=== PATIENT | male | born 1960 | race Caucasian/White ===

== ENCOUNTER 2020-01-11 09:15 | Outpatient (RCR) | payer OTHER, SELFPAY | END 2020-02-26 23:59 | disposition home or self-care (01) | LOC: ANHDMC 09:15 | PROVIDERS: PCP Family Medicine; Visit Provider Family Medicine | DX: E11.65 Type 2 diabetes mellitus with hyperglycemia (principal); Z71.89 Other specified counseling | CPT/HCPCS: G0108 ==

== ENCOUNTER 2020-09-23 12:20 | Outpatient (NON) | payer OTHER, SELFPAY ==
[2020-09-23 23:01] LABS: SARS-CoV-2 RNA PCR Positive
== END 2020-09-23 12:21 ==
LOC: ANHCOVIDDT 12:21
PROVIDERS: PCP Family Medicine; Visit Provider Physician Assistant
DX: U07.1 COVID-19 (principal)
CPT/HCPCS: 87635; C9803; U0003

== ENCOUNTER → 2021-01-24 01:47 | Outpatient (CLI) | payer OTHER, SELFPAY ==
[2021-01-24 19:39] LABS: SARS-CoV-2 RNA PCR Negative
== END ==
PROVIDERS: PCP Physician Assistant; Visit Provider Internal Medicine Critical Care Medicine
DX: R68.89 Other general symptoms and signs (principal); Z20.822 Contact with and (suspected) exposure to COVID-19
CPT/HCPCS: C9803; U0003; U0005

== ENCOUNTER 2021-01-27 09:00 | Outpatient (CLI) | payer OTHER, SELFPAY ==
--- NOTE | 2021-02-12 09:45 | WPDSLEEPSTUD ---
Sleep Study Date of Study: 01/27/21 Ordering Provider: Bhanu Luna PA-C Interpreting Physician: Ginette Saucedo MD Sleep Study Type: CPAP Titration Height: 1.91 m Weight: 127.006 kg Body Mass Index: 34.9 Neck Circumference (inches): 19 Stanton: 8 Reason for Sleep Study History of sleep apnea controlled with CPAP for 20 years, has not had an evaluation in many years, presents for CPAP re-titration. 12/23/2012 CPAP re-titration; optimal pressure 11 cm; BMI 37.5 Sleep History Rom Ackerman is a 60-year-old man who was diagnosed with obstructive sleep apnea 20 years ago and was treated with CPAP. He constantly snores at night and is loud enough that others complain about it. He constantly has trouble sleeping with a cold. He does not awaken at night with heartburn, belching or coughing. He does not awaken from sleep feeling short of breath. He does not gasp for breath at night. He constantly has breathing problems at night observed by others when he is not using CPAP. He occasionally sweats excessively at night. He does not notice his heart pounding or beating irregularly at night. He occasionally falls asleep during the day, never involuntarily or while driving. He does not have loss of muscle tone was strong emotion. He does not have daytime difficulties due to excessive sleepiness. He does not feel paralyzed on waking or falling asleep. He occasionally has vivid dreamlike scenes upon awakening or falling asleep. He is not afraid to go to sleep. He does not have nightmares. He occasionally remembers his dreams. He does not have racing thoughts. He denies feelings of sadness depression or anxiety. He does not have muscular tension. He does not notice parts of his body jerking and he does not kick at night. He does not have crawling or aching feelings in his legs. He does not have any kind of leg pain at night. He does not have morning jaw pain. He does not grind his teeth during sleep. He is not bothered by pain during the day and is not awakened by pain at night. He occasionally wakes up feeling stiff in the morning. He does not wake up with sore achy muscles. He occasionally wakes up with pain in the neck and spine. He has fatigue. Normal bedtime is 11:00 p.m. falling asleep within 30 minutes. He does not awaken during the night. If he wakes up it is only for a minute or 2 in the middle of the night. He will roll over and return to sleep. His wake up time is 6:30 a.m.. On the weekends he goes to bed at 11:00 p.m. and wakes at 7:30 a.m.. He does not take naps. A short nap is not refreshing. Most of the time he feels good in the morning. He feels better in the morning compared other times a day. Habits: No tobacco, caffeine, alcohol, or recreational drugs. [facility] Past Medical History Medical History Hyperlipidemia Hypertension Skin cancer Type 2 diabetes mellitus Surgical History Surgical History H/O shoulder surgery To repair fractured clavicle History of hernia repair Previous back surgery Family History Family History Other Family history of primary malignant neoplasm of liver Malignant neoplasm of prostate Social History Social History Smoking status: Former smoker Second hand tobacco smoke exposure: No Alcohol intake: current Drinks per week: 1 Substance use: never Substance use type: does not use Gender identity (if verbalized by the patient): Male Spiritual care concerns: Yes Agree to blood products: Yes Medications Home Medications Medication Instructions Recorded Confirmed Type metformin 500 mg tablet,extended 2,000 mg PO QPM #360 tablet 02/05/20 01/09/21 Rx release 24 hr lancets 33 gauge #100 each 10/02/20 01/09/21 Rx lisinopril 10
[2021-02-12 10:12] VITALS: BMI 34.9
== END 2021-01-27 09:01 | disposition home or self-care (01) ==
LOC: ANHCSM 09:00
PROVIDERS: PCP Physician Assistant; Visit Provider Physician Assistant
DX: G47.33 Obstructive sleep apnea (adult) (pediatric) (principal); Z99.89 Dependence on other enabling machines and devices
CPT/HCPCS: 95811

== ENCOUNTER → 2022-03-02 09:46 | Outpatient (CLI) | payer OTHER, SELFPAY ==
--- NOTE | ~2022-03-02 | MR_ITS ---
EXAMINATION: MR brain IAC wo/w con DATE: 03/02/2022 10:46 INDICATION: Other specified hearing loss, unspecified ear. TECHNIQUE: Magnetic resonance imaging (MRI) of the brain, brainstem, and internal auditory canals was performed without and with 20 mL MultiHance intravenous contrast. COMPARISON: Sinuses CT 03/16/2019 FINDINGS: There are scattered areas of nonspecific increased T2-weighted signal intensity in the cere bral white matter. There is no intracranial hemorrhage, acute infarction, or abnormal intracranial ma ss lesion. The ventricles are normal in size. There is mild mucosal thickening in the paranasal sinus es. The orbits are normal. The internal artery canals and inner and middle ears are normal. The masto id air cells are normal. IMPRESSION: 1. Mild nonspecific cerebral white matter disease, which likely represents chronic small vessel ische kyree disease. Reviewed, dictated and finalized at location A. IMPRESSION: 1. 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
[2022-03-02 10:13] LABS: Estimated Glomerular Filt Rate > 60
== END ==
PROVIDERS: PCP Family Medicine; Visit Provider Otolaryngology
DX: H91.8X9 Other specified hearing loss, unspecified ear (principal); R93.0 Abnormal findings on diagnostic imaging of skull and head, not elsewhere classified
CPT/HCPCS: 70553; A9577

== ENCOUNTER 2022-12-04 02:38 | Day surgery (SDC) | payer OTHER, SELFPAY ==
[2022-11-19 14:45] VITALS: BMI 34.9
[2022-12-04 06:40] VITALS: BP 142/78; PULSE 73; RESP 18; TEMP 36.1; O2SAT 99
[2022-12-04] MEDS: LACTATED RINGERS 1,000 ML 150 ML IV CONT (06:51)
[2022-12-04 06:56] LABS: Glucose Point of Care 151 mg/dl (65-105)
--- NOTE | 2022-12-04 07:49 | WPDANESEPPF ---
Anes - Initial Pre Proc Eval Procedure: Operation Date: 12/04/22 08:00 Proposed Procedures p Screening Colonoscopy - Anderson Kovacs MD Date/Time: 12/04/22 07:49 Surgeon: Anderson Kovacs MD Pre Op Diagnosis: neoplasm screening Patient Data Age: 62 Gender: M Height: 1.91 m Weight: 127 kg Last Vital Signs Temp 96.9 F L 12/04/22 06:40 Pulse 73 12/04/22 06:40 Resp 18 12/04/22 06:40 BP 142/78 H 12/04/22 06:40 Pulse Ox 99 12/04/22 06:40 O2 Del Method Room Air 12/04/22 06:40 Allergies Allergy/AdvReac Type Severity Reaction Status Date / Time No Known Allergies Allergy Verified 12/04/22 06:38 Home Medications Medication Instructions Recorded Confirmed Type fluticasone propionate 50 1 spray intranasal DAILY 01/09/21 11/19/22 History mcg/actuation nasal spray,suspension (Flonase Allergy Relief) simvastatin 20 mg tablet 20 mg PO DAILY #90 tabs 12/26/21 11/19/22 Rx glucosamine 750 gw-ktthjjsruhe-cbx 1 tablet PO DAILY 04/20/22 11/19/22 History no1 644 mg-C 30 mg-christine 1 mg tablet (Osteo Bi-Flex Triple Strength) omega 9-sry-zzj-fish oil 1,200 mg 1 cap PO DAILY 04/20/22 11/19/22 History (144 mg-216 mg) capsule (Fish Oil) pen needle, diabetic 31 gauge x #100 ea 07/14/22 10/22/22 Rx 1/4 (1st Tier Unifine Pentips Plus) dapagliflozin 10 mg tablet See Rx Instructions .Route 08/23/22 11/19/22 Rx (Farxiga) .COMPLEX #90 tabs lancets 33 gauge (OneTouch Delica #100 ea 09/23/22 10/22/22 Rx Lancets) cholecalciferol (vitamin D3) 125 125 mcg PO DAILY 10/22/22 11/19/22 History mcg (5,000 unit) capsule lisinopril 10 mg tablet See Rx Instructions .Route 10/22/22 11/19/22 Rx .COMPLEX #90 tabs magnesium oxide 500 mg tablet 500 mg PO DAILY 10/22/22 11/19/22 History mecobalamin (vitamin B12) 1,000 1,000 mcg PO DAILY 10/22/22 11/19/22 History mcg chewable tablet potassium gluconate 595 mg (99 mg) 595 mg PO DAILY 10/22/22 11/19/22 History tablet sildenafil 100 mg tablet (Viagra) 100 mg PO DAILY PRN sexual 10/22/22 11/19/22 Rx activity #9 tabs metformin 500 mg tablet,extended 2,000 mg PO QPM #360 tabs 11/03/22 11/19/22 Rx release 24 hr blood sugar diagnostic (OneTouch #300 ea 11/17/22 Rx Verio test strips) insulin glargine-yfgn 100 unit/mL 80 unit subcut DAILY 12/04/22 12/04/22 History (3 mL) subcutaneous pen (Semglee (insulin glargine-yfgn) Pen) Laboratory Tests 12/04/22 06:45 POC Capillary Glucose 151 mg/dl H mg/dl (65-105) Patient hx anesthesia problems: none Family hx anesthesia problems: none Results Review: All pre-operative results and documents have been reviewed as part of the pre-operative evaluation. [facility] Past Medical History Medical History Dupuytren's contracture of left hand Hyperlipidemia Hypertension Skin cancer Type 2 diabetes mellitus Wears hearing aid in both ears Surgical History Surgical History H/O shoulder surgery To repair fractured clavicle History of hernia repair Previous back surgery Family History Family History Other Family history of primary malignant neoplasm of liver Malignant neoplasm of prostate Social History Social History (Updated 10/22/22 @ 08:19 by Melissa Vasquez CMA) Smoking status: Former smoker Second hand tobacco smoke exposure: No Alcohol intake: current Drinks per week: 1 Alcohol use details: Occasional Substance use: never Substance use type: does not use Lack of Transportation: No Lack of Food: Never True Current Housing: I Have Housing Concerned About Future Housing: No Difficulty Paying Gas/Electric Bills: No Difficulty Paying for Meds: No Currently Unemployed: No Education: Bachelor's Degree Difficulty w/ Childcare or
--- NOTE | 2022-12-04 07:51 | PM.HPGS ---
History of Present Illness History of Present Illness Consent: Risks, benefits, and alternatives have been discussed and questions answered. Patient agrees to proceed with procedure. Chief complaint: neoplasm screening Narrative: Rom Ackerman is a 62 year old male with history of polyp when had his first colonoscopy, last one was 5 years ago Review of Systems Constitutional: Constitutional: Denies headache(s) and Denies weakness Eyes: Eyes: Denies blurry vision ENT: Reports Normal hearing present, Denies headache(s) and Denies neck pain Cardiovascular: Cardiovascular: Denies chest pain and Denies dyspnea Respiratory: Respiratory: Denies dyspnea Gastrointestinal: Gastrointestinal: Reports no additional gastrointestinal complaints Genitourinary: Genitourinary: Denies dysuria Musculoskeletal: Musculoskeletal: Denies neck pain Integumentary/Breasts: Skin/Breast: Denies dry skin Neurologic: Reports Normal hearing present, Denies headache(s) and Denies weakness Psychiatric: Psychiatric: Denies anxiety Endocrine: Endocrine: Denies change in body appearance Hematologic/Lymphatic: Hematologic/Lymphatic: Denies easy bleeding Allergic/Immunologic: Allergic/Immunologic: Denies urticaria PMFSH Past Medical History Medical History (Updated 12/04/22 @ 07:52 by Anderson Kovacs MD) Colon polyp Dupuytren's contracture of left hand Hyperlipidemia Hypertension Skin cancer Type 2 diabetes mellitus Wears hearing aid in both ears Surgical History Surgical History H/O shoulder surgery To repair fractured clavicle History of hernia repair Previous back surgery Family History Family History Other Family history of primary malignant neoplasm of liver Malignant neoplasm of prostate Social History Social History (Updated 10/22/22 @ 08:19 by Melissa Vasquez [facility]) Smoking status: Former smoker Second hand tobacco smoke exposure: No Alcohol intake: current Drinks per week: 1 Alcohol use details: Occasional Substance use: never Substance use type: does not use Lack of Transportation: No Lack of Food: Never True Current Housing: I Have Housing Concerned About Future Housing: No Difficulty Paying Gas/Electric Bills: No Difficulty Paying for Meds: No Currently Unemployed: No Education: Bachelor's Degree Difficulty w/ Childcare or Family Care: No Living arrangements: alone Occupation/Education: occupation Gender identity (if verbalized by the patient): Male Sexual Orientation (if Verbalized by the Patient): Straight or Heterosexual Spiritual care concerns: No Agree to blood products: Yes Meds Home Medications and Allergies Home Medications Medication Instructions Recorded Confirmed Type fluticasone propionate 50 1 spray intranasal DAILY 01/09/21 11/19/22 History mcg/actuation nasal spray,suspension (Flonase Allergy Relief) simvastatin 20 mg tablet 20 mg PO DAILY #90 tabs 12/26/21 11/19/22 Rx glucosamine 750 ja-tzfgvgnlpwq-chq 1 tablet PO DAILY 04/20/22 11/19/22 History no1 644 mg-C 30 mg-christine 1 mg tablet (Osteo Bi-Flex Triple Strength) omega 9-ywc-zpy-fish oil 1,200 mg 1 cap PO DAILY 04/20/22 11/19/22 History (144 mg-216 mg) capsule (Fish Oil) pen needle, diabetic 31 gauge x #100 ea 07/14/22 10/22/22 Rx 1/ (1st Tier Unifine Pentips Plus) dapagliflozin 10 mg tablet See Rx Instructions .Route 08/23/22 11/19/22 Rx (Farxiga) .COMPLEX #90 tabs lancets 33 gauge (OneTouch Delica #100 ea 09/23/22 10/22/22 Rx Lancets) cholecalciferol (vitamin D3) 125 125 mcg PO DAILY 10/22/22 11/19/22 History mcg (5,000 unit) capsule lisinopril 10 mg tablet See Rx Instructions .Route 10/22/22 11/19/22 Rx .COMPLEX #90 tabs magnesium oxide 500 mg tablet 500 mg PO DAILY 10/22/22 11/19/22 History mecobalamin
[2022-12-04 08:14] VITALS: BP 128/61; PULSE 68; RESP 13; O2SAT 97
[2022-12-04 08:24] VITALS: BP 131/77; PULSE 74; RESP 18; O2SAT 100
[2022-12-04 08:34] VITALS: BP 129/70; PULSE 70; RESP 20; O2SAT 100
[2022-12-04 08:35] LABS: Glucose Point of Care 149 mg/dl (65-105)
== END 2022-12-04 08:47 | disposition home or self-care (01) ==
PROVIDERS: PCP Family Medicine; Visit Provider Internal Medicine Gastroenterology
PROC: 0DJD8ZZ Inspection of Lower Intestinal Tract, Via Natural or Artificial Opening Endoscopic (ICD-10-PCS; CPT 45378; principal; 2022-12-04 08:00)
DX: Z12.11 Encounter for screening for malignant neoplasm of colon (principal); K63.5 Polyp of colon; K64.8 Other hemorrhoids; I10 Essential (primary) hypertension; E78.5 Hyperlipidemia, unspecified; E11.9 Type 2 diabetes mellitus without complications; E66.9 Obesity, unspecified; Z68.35 Body mass index [BMI] 35.0-35.9, adult; Z79.84 Long term (current) use of oral hypoglycemic drugs; Z79.4 Long term (current) use of insulin
CPT/HCPCS: 45385; 82948; 88305; J2704; J7120